=== PATIENT | female | born 1975 ===

== ENCOUNTER 2018-03-05 06:22 | Inpatient (IN) | payer BC ==
[2018-02-26 08:45] VITALS: BMI 34.3
[2018-03-05] MEDS ORDERED: Lactated Ringer's 1,000 ML IV ONE (07:12)
[2018-03-05] MEDS ORDERED: cefOXitin IV 1 gm in Dextrose 1 GM/50 ML BAG IVPB ONE (07:59)
[2018-03-05] MEDS ORDERED: Midazolam 2 MG/2 ML VIAL ONE (08:18)
[2018-03-05] MEDS ORDERED: Propofol 10 mg/ml Inj (20 ML) ONE (08:18)
[2018-03-05] MEDS ORDERED: Lidocaine 2% MPF (5 ml) Inj ONE ×2 (08:19→10:38)
[2018-03-05] MEDS ORDERED: Rocuronium 10 mg/ml (5 ml) ONE ×2 (08:20→09:18)
--- NOTE | 2018-03-05 08:25 | CP.PCM.HP ---
History of Present Illness - History of Present Illness History of Present Illness: fibroid uterus pelvic pain Past Patient History - Past Medical History & Family History Past Medical History?: Yes - Past Social History Smoking Status: Never Smoked - CARDIAC Hx Cardiac Disorders: No - PULMONARY Hx Respiratory Disorders: Yes Hx Asthma: Yes - NEUROLOGICAL Hx Neurological Disorder: No - HEENT Hx HEENT Problems: No - RENAL Hx Chronic Kidney Disease: No - ENDOCRINE/METABOLIC Hx Endocrine Disorders: No - HEMATOLOGICAL/ONCOLOGICAL Hx Blood Disorders: Yes Hx Sickle Cell Disease: Yes - INTEGUMENTARY Hx Dermatological Problems: No - MUSCULOSKELETAL/RHEUMATOLOGICAL Hx Musculoskeletal Disorders: Yes Hx Arthritis: Yes (hands,knees) - GASTROINTESTINAL Hx Gastrointestinal Disorders: No - GENITOURINARY/GYNECOLOGICAL Hx Genitourinary Disorders: No - PSYCHIATRIC Hx Psychophysiologic Disorder: No Hx Substance Use: No - SURGICAL HISTORY Hx Surgeries: No Other/Comment: lap banding - ANESTHESIA Hx Anesthesia: Yes Hx Anesthesia Reactions: Yes (nausea/vomiting) Has any member of the family had a problem w/ anesthesia?: No Meds Allergies/Adverse Reactions: Allergies Allergy/AdvReac Type Severity Reaction Status Date / Time nut - unspecified Allergy SHORTNESS Verified 02/26/18 08:08 OF BREATH Results - Vital Signs Recent Vital Signs: Last Vital Signs Temp 98.5 F 03/05/18 07:03 Pulse 64 03/05/18 07:06 Resp 20 03/05/18 07:03 BP 113/78 03/05/18 07:03 Pulse Ox 98 03/05/18 07:03 - Labs Result Diagrams: 03/06/18 06:50 Labs: Laboratory Results - last 24 hr 03/05/18 07:44 BBK History Checked Patient has bt Assessment & Plan - Assessment and Plan (Free Text) Assessment: fibroid uterus pelvic pain Plan: admit for myomectomy and possille saleem - Date & Time Date: 03/05/18 Time: 08:25
--- NOTE | 2018-03-05 08:31 | CP.PCM.HP ---
Present on Admission - Present on Admission Any Indicators Present on Admission: No History of DVT/PE: No History of Uncontrolled Diabetes: No Urinary Catheter: No Decubitus Ulcer Present: No Past Patient History - Past Medical History & Family History Past Medical History?: Yes - Past Social History Smoking Status: Never Smoked - CARDIAC Hx Cardiac Disorders: No - PULMONARY Hx Respiratory Disorders: Yes Hx Asthma: Yes - NEUROLOGICAL Hx Neurological Disorder: No - HEENT Hx HEENT Problems: No - RENAL Hx Chronic Kidney Disease: No - ENDOCRINE/METABOLIC Hx Endocrine Disorders: No - HEMATOLOGICAL/ONCOLOGICAL Hx Blood Disorders: Yes Hx Sickle Cell Disease: Yes - INTEGUMENTARY Hx Dermatological Problems: No - MUSCULOSKELETAL/RHEUMATOLOGICAL Hx Musculoskeletal Disorders: Yes Hx Arthritis: Yes (hands,knees) - GASTROINTESTINAL Hx Gastrointestinal Disorders: No - GENITOURINARY/GYNECOLOGICAL Hx Genitourinary Disorders: No - PSYCHIATRIC Hx Psychophysiologic Disorder: No Hx Substance Use: No - SURGICAL HISTORY Hx Surgeries: No Other/Comment: lap banding - ANESTHESIA Hx Anesthesia: Yes Hx Anesthesia Reactions: Yes (nausea/vomiting) Has any member of the family had a problem w/ anesthesia?: No Meds Allergies/Adverse Reactions: Allergies Allergy/AdvReac Type Severity Reaction Status Date / Time nut - unspecified Allergy SHORTNESS Verified 02/26/18 08:08 OF BREATH Results - Vital Signs Recent Vital Signs: Last Vital Signs Temp 98.5 F 03/05/18 07:03 Pulse 64 03/05/18 07:06 Resp 20 03/05/18 07:03 BP 113/78 03/05/18 07:03 Pulse Ox 98 03/05/18 07:03 - Labs Labs: Laboratory Results - last 24 hr 03/05/18 07:44 BBK History Checked Patient has bt
[2018-03-05] MEDS ORDERED: Sodium Chloride 0.9% 1,000 ML IV ONE (08:40)
[2018-03-05] MEDS ORDERED: Succinylcholine 200 mg/10 ml Inj IV ONE (08:44)
[2018-03-05] MEDS ORDERED: Lidocaine 2% Jelly (5 ml) TOP ONE (08:45)
[2018-03-05] MEDS ORDERED: Neostigmine 1:1000 (1 mg/ml) Inj ONE (09:00)
[2018-03-05] MEDS ORDERED: Sevoflurane - Inhalation Anesthetic Liq (250 ml) ONE (10:01)
[2018-03-05] MEDS ORDERED: Lactated Ringer's 500 ML IV ONE (10:18)
[2018-03-05] MEDS ORDERED: Lactated Ringer's 1,000 ML IV PRN (10:54)
[2018-03-05] MEDS ORDERED: HYDROmorphone 0.5 mg/0.5 ml ISec IVP PRN (10:54)
[2018-03-05] MEDS: HYDROmorphone 0.5 mg/0.5 ml ISec IVP PRN ×2 (11:22→11:48)
[2018-03-05] MEDS: Lactated Ringer's 1,000 ML IV SCH (14:57)
[2018-03-05] MEDS: cefOXitin IV 1 gm in Dextrose 1 GM/50 ML BAG IVPB SCH (16:05)
[2018-03-06] MEDS: cefOXitin IV 1 gm in Dextrose 1 GM/50 ML BAG IVPB SCH ×2 (00:57→09:16)
[2018-03-06] MEDS: Lactated Ringer's 1,000 ML IV SCH (01:01)
[2018-03-06 07:24] LABS: HEMOGLOBIN 10.5 g/dL (12.0-16.0); MEAN CELL VOLUME 92.8 fl (81.0-99.0); MEAN CORPUSCULAR HEMOGLOBIN 31.9 pg (27.0-31.0); MEAN CORPUSCULAR HGB CONC 34.4 g/dL (33.0-37.0); RBC 3.28 Mil/uL (3.80-5.20); RED CELL DISTRIBUTION WIDTH 13.5 % (11.5-14.5); WHITE BLOOD COUNT 8.3 K/uL (4.8-10.8)
--- NOTE | 2018-03-06 10:05 | CP.PCM.PN ---
Subjective - Date & Time of Evaluation Date of Evaluation: 03/06/18 Time of Evaluation: 10:05 - Subjective Subjective: stable pod1 no complaints Objective - Vital Signs/Intake and Output Vital Signs (last 24 hours): Temp Pulse Resp BP Pulse Ox 98.5 F 81 20 98/60 L 20 L 03/06/18 05:00 03/06/18 05:00 03/06/18 01:00 03/06/18 05:00 03/06/18 05:00 Intake and Output: 03/06/18 03/06/18 06:59 18:59 Intake Total 1750 Output Total 700 Balance 1050 - Medications Medications: Current Medications Acetaminophen (Tylenol 325mg Tab) 650 mg PO Q4 PRN PRN Reason: Pain, moderate (4-7) Last Admin: 03/05/18 20:01 Dose: 650 mg Lactated Ringer's (Lactated Ringer's) 1,000 mls @ 100 mls/hr IV .Q10H PRN PRN Reason: Hypotension Lactated Ringer's (Lactated Ringer's) 1,000 mls @ 100 mls/hr IV .Q10H NAYLA Last Admin: 03/06/18 01:01 Dose: 100 mls/hr Ketorolac Tromethamine (Toradol) 30 mg IVP Q6 PRN PRN Reason: Pain, moderate (4-7) Last Admin: 03/05/18 21:49 Dose: 30 mg Ondansetron HCl (Zofran Inj) 4 mg IVP Q4 PRN PRN Reason: Nausea/Vomiting Simethicone (Mylicon Chew Tab) 80 mg PO Q4 PRN PRN Reason: Flatulence - Labs Labs: 03/06/18 06:50 - Eye Exam Additional comments: v.s stable afebrile incision clean and healing well Assessment and Plan - Assessment and Plan (Free Text) Assessment: stable pod1 s/p myomectomy Plan: continue present care advance diet as tolerated oob with assistance may shower
[2018-03-06] MEDS: Simethicone 80 mg Chewtab PO PRN ×2 (10:18→14:48)
[2018-03-06] MEDS: Oxycodone/Acetaminophen 5/325 mg Tab PO PRN (17:08)
[2018-03-07] MEDS: Oxycodone/Acetaminophen 5/325 mg Tab PO PRN (05:28)
[2018-03-07 08:49] VITALS: RESP 20
[2018-03-07 08:50] VITALS: BP 110/63
--- NOTE | 2018-03-07 10:21 | CP.PCM.DIS ---
Provider - Provider Date of Admission: 03/05/18 11:12 Attending physician: Jose Alberto Le MD Primary care physician: Farida Ocasio MD Time Spent in preparation of Discharge (in minutes): 15 Hospital Course - Lab Results Lab Results: Most Recent Lab Values WBC 8.3 K/uL (4.8-10.8) 03/06/18 06:50 RBC 3.28 Mil/uL (3.80-5.20) L 03/06/18 06:50 Hgb 10.5 g/dL (12.0-16.0) L D 03/06/18 06:50 Hct 30.4 % (34.0-47.0) L 03/06/18 06:50 MCV 92.8 fl (81.0-99.0) 03/06/18 06:50 MCH 31.9 pg (27.0-31.0) H 03/06/18 06:50 MCHC 34.4 g/dL (33.0-37.0) 03/06/18 06:50 RDW 13.5 % (11.5-14.5) 03/06/18 06:50 Plt Count 226 K/uL (130-400) 03/06/18 06:50 Blood Type A POSITIVE 03/05/18 07:44 Antibody Screen Negative 03/05/18 07:44 BBK History Checked Patient has bt 03/05/18 07:44 - Date & Time of H&P Date of H&P: 03/05/18 Time of H&P: 08:20 Discharge Exam - Respiratory Exam Additional comments: stable pod 2 s/p myomectoy Discharge Plan - Follow Up Plan Condition: GOOD Disposition: HOME/ ROUTINE Patient education suggested?: Yes Referrals: Farida Ocasio MD [Primary Care Provider] - Clinical Quality Measures - CQM - VTE Did patient receive overlap therapy during hosptialization?: No
[2018-03-07] MEDS ORDERED: Influenza Vaccine (5 YR UP)/PF 60 MCG/0.5 ML SYR IM ONE (13:00)
[2018-03-07 13:57] VITALS: PULSE 86; TEMP 98.3; O2SAT 100
--- NOTE | 2018-03-12 20:13 | OP ---
PROCEDURE DATE: 03/05/2018 PREOPERATIVE DIAGNOSES: Fibroid uterus, pelvic pain. POSTOPERATIVE DIAGNOSES: Fibroid uterus, pelvic pain, severe adhesions, and right ovarian cyst. PROCEDURE: Laparotomy with myomectomy, lysis of adhesions, and right ovarian cystectomy. SURGEON: Jose Alberto Le MD RECEIVING CHECKER: Azar Cruz MD TYPE OF ANESTHESIA: General anesthesia. ANESTHESIA ADMINISTERED BY: Gagan Faulkner MD ESTIMATED BLOOD LOSS: Minimal. DESCRIPTION OF PROCEDURE: With the patient in the supine position and under general anesthesia, the patient was prepped and draped in the usual sterile manner. Dr. Cruz was present and assisted in the preparation of the surgery. A Pfannenstiel incision was then made and taken down to the fascia in layers. Fascia was incised and extended bilaterally. Dr. Cruz was doing his half and I was doing my half. After this was done, the fascia was from the muscle by sharp dissection. The peritoneum was grasped and opened vertically. After this was done, the fibroids were recognized and also the ovarian cyst. The fibroids were removed sequentially and the incisions were closed immediately after maintaining hemostasis. After this was done, the right ovarian cystectomy was then done. After this, the pelvic cavity was irrigated until clean. Interceed and Surgicel were placed to prevent any further bleeding or any adhesions. After this was done, peritoneum was grasped and closed with 1 Vicryl. The muscle was reapproximated with 1 Vicryl. Fascia was closed with 1 Vicryl running interlocking stitch starting at each end and finishing in the midline. Dr. Cruz is doing his half and I am doing my half. After this was done, the subcutaneous layer was closed with 2-0 plain and the skin was closed with candace. The patient tolerated the procedure well and was in satisfactory condition on the way to recovery room. Estimated blood loss was about 500 mL. Jose Alberto Le MD
== END 2018-03-07 14:20 | disposition home or self-care (01) | DRG 743 ==
LOC: H.OPSURG 06:22 → H.PEDS 11:12
PROVIDERS: ADMIT Specialist; ATTEND Specialist
PROC: 0UB90ZZ Excision of Uterus, Open Approach (ICD-10-PCS; 2018-03-05)
PROC: 0UB00ZZ Excision of Right Ovary, Open Approach (ICD-10-PCS; 2018-03-05)
PROC: 3E02340 Introduction of Influenza Vaccine into Muscle, Percutaneous Approach (ICD-10-PCS; principal; 2018-03-07)
DX: D25.9 Leiomyoma of uterus, unspecified (principal); D57.1 Sickle-cell disease without crisis; J45.909 Unspecified asthma, uncomplicated; Z23 Encounter for immunization; N83.11 Corpus luteum cyst of right ovary; N73.6 Female pelvic peritoneal adhesions (postinfective)